=== PATIENT | female | born 1950 | race Caucasian/White ===

== ENCOUNTER 2019-02-22 11:52 | Emergency (ER) | payer OTHER ==
[~2019-02-22] VITALS: Ht 157.5 cm; Wt 76.2 kg
[2019-02-22 14:54] VITALS: BP 133/86
== END 2019-02-22 14:54 | disposition home or self-care (01) ==
LOC: ED 11:52
DX: S00.83XA Contusion of other part of head, initial encounter (principal); I10 Essential (primary) hypertension; Z88.8 Allergy status to other drugs, medicaments and biological substances; W01.0XXA Fall on same level from slipping, tripping and stumbling without subsequent striking against object, initial encounter; Y93.89 Activity, other specified; Y92.89 Other specified places as the place of occurrence of the external cause; Y99.8 Other external cause status

== ENCOUNTER 2019-04-23 08:44 | Inpatient (IN) | payer OTHER ==
[~2019-04-23] VITALS: Ht 157.5 cm; Wt 70.0 kg
[2019-04-23 08:50] VITALS: Ht 157.5 cm; Wt 70.0 kg
--- NOTE | 2019-04-23 09:38 | NUR ---
PT TO XRAY VIA W/C
--- NOTE | 2019-04-23 09:49 | NUR ---
PT MEDICATED PER MD ORDERS SEE EMAR.
[2019-04-23 09:53] LABS: BASOPHIL % 0.1 % (0-2); PLATELET COUNT 168 x10^3mcL (130-400)
[2019-04-23 09:55] LABS: RED CELL DISTRIBUTION WIDTH 15.1 % (11.5-14.5)
[2019-04-23 09:57] LABS: CALCIUM 9.2 mg/dL (8.5-10.1); CARBON DIOXIDE 24.5 mmol/L (21-32); POTASSIUM SERUM 3.7 mmol/L (3.5-5.1)
[2019-04-23 10:09] LABS: BILIRUBIN TOTAL 0.48 mg/dL (0.20-1.00); T4(THYROXINE) 7.7 ug/dL (4.7-13.3)
--- NOTE | 2019-04-23 10:13 | NUR ---
PT TO CT
--- NOTE | 2019-04-23 10:24 | NUR ---
PT BACK FROM CT WITH NO INCIDENT. PT OOB AMBULATORY TO BATHROOM WITH ASSISTANCE WILL PROVIDE CLEAN CATCH URINE INST.
[2019-04-23 10:32] LABS: ALBUMIN 3.2 g/dL (3.4-5.0); TOTAL PROTEIN, SERUM 8.6 g/dL (6.4-8.2)
[2019-04-23 11:12] LABS: AMPHETAMINE QUAL UR NONE DETECTED (See below)
--- NOTE | 2019-04-23 11:18 | NUR ---
CUP OF WATER GIVEN OK PER DR RODRIGUEZ
--- NOTE | 2019-04-23 12:00 | NUR ---
REPORT GIVEN TO CA HERNANDEZ.
[2019-04-23] MEDS ORDERED: HYDROCHLOROTHIA25 MG (12:23)
[2019-04-23] MEDS ORDERED: LISINOPRIL5 MG (12:23)
--- NOTE | 2019-04-23 12:23 | NUR ---
PT TRANSPORTED TO MED SURG FLOOR VIA [place] NO DISTRESS. VSS IV SITE PATENT. CA RN RESUMED CARE OF PT
--- NOTE | 2019-04-23 13:17 | NUR ---
AT 1220 - RECEIVED PATIENT FROM ER NURSE. SETTLED IN ROOM, ORIENTED TO SURROUNDINGS. ADMITTED WITH THROAT PAIN AND COUGH; DX OF PNEUMONIA. PATIENT IS AWAKE, ALERT AND ORIENTED X 4. VS WNL. AFEBRILE. RESPIRATIONS REGULAR ON 2L VIA NC. NOTED HALLITOSIS. PATIENT REPROTS NOT BEING ABLE TO TAKE ANYTHING PO FOR 3 DAYS. HISTORY OBTAINED FROM PATIENT. IV INFUSING LEVAQUIN. AT 1250 - COMMENCED IV INFUSION OF D5NS AT 50 ML/HR. GIVEN PEPCID IV PER EMAR. ALSO ADMINISTERED DOSE OF ROBITUSSEN FOR COUGH AND THROAT PAIN. PATIENT INSTRUCTED TO CALL WITH ANY NEEDS.
[2019-04-23 13:22] VITALS: BP 133/62
--- NOTE | 2019-04-23 14:29 | NUR ---
AT 1357 - MEDICATED WITH IV MORPHINE 1 MG PER EMAR FOR PERSISTANT THROAT PAIN. AT 1415 - COMMENCED ON IV ROCEPHIN. FIRST DOSE IN PROGRESS. PATIENT GIVEN PO ICE CHIPS.
--- NOTE | 2019-04-23 15:14 | NUR ---
PATIENT PLACE ON ROOM AIR BY RT AFTER RECEIVING BREATHING TREATMENT.
--- NOTE | 2019-04-23 15:52 | NUR ---
NASAL SWAB FOR MRSA COOLECTED AND TAKEN TO LAB.
[2019-04-23 17:27] VITALS: BP 135/75
--- NOTE | 2019-04-23 17:31 | NUR ---
COMMENCED ON ZITHROMAX. FIRST DOSE IN PROGRESS. PATIENT AMBULATED TO BATHROOM AND BACK TO BED WITH ASSISTANCE. REPORTS THAT MORPHINE WAS EFFECTIVE IN DULLING THE THROAT PAIN. PATIENT WILL TRY SOFT FOOD FOR DINNER - CANNED FRUIT AND JELLO.
--- NOTE | 2019-04-23 18:44 | NUR ---
VSS AND WNL. AFEBRILE. IV INFUSING D5NS AT 50 ML/HR. WILL ENDORSE CARE TO NIGHT NURSE.
--- NOTE | 2019-04-23 19:34 | NUR ---
PT C/O THROAT PAIN DURING INITIAL ROUNDS 04/23 PER ASSESSMENT NO DISTRESS, LUNGS DIM BILAT BASES OCC COUGHING ON RA MORPHINE 1MG IVP GIVEN PER PRN ORDER WILL CONT TO MONITOR, SHIFT ASSESSMENT DONE, IVF INFUSING D5NS @ 50CC/HR IV ACCESS @ RAC PATENT NON INFIL, AAO X4 VERBALIZED NEEDS, AMBULATES WITH ASSIST GEN WEAKNESS, EQUAL RECOVERY ROOM RN, RT CAME FOR HHN TX, CONT TO MONITOR.
[2019-04-23 20:19] VITALS: BP 128/68
--- NOTE | 2019-04-24 03:00 | NUR ---
PT AWAKE ASSISTED TO THE BATHROOM, SLOW BUT STEADY GAIT, REQUIRES ASSISTANCE FOR AMBULATION, DENIES PAIN AT THIS TIME, ABLE TO TOLERATE JUICES, ASPIRATION PREC OBSERVED, ATTENDED NEEDS CALL LIGHT AT REACH, CONT TO MONITOR.
[2019-04-24 05:51] VITALS: BP 120/71
[2019-04-24 06:25] LABS: CALCIUM 8.7 mg/dL (8.5-10.1); CARBON DIOXIDE 25.2 mmol/L (21-32); POTASSIUM SERUM 4.2 mmol/L (3.5-5.1)
[2019-04-24 06:47] LABS: BASOPHIL % 0.2 % (0-2); PLATELET COUNT 154 x10^3mcL (130-400)
[2019-04-24 06:49] LABS: RED CELL DISTRIBUTION WIDTH 15.1 % (11.5-14.5)
--- NOTE | 2019-04-24 07:00 | NUR ---
NO SIGNIFICANT CHANGES, SLEPT WELL DURING THE SHIFT, WILL ENDORSE TO INCOMING SHIFT FOR FOLLOW UP THE CARE.
--- NOTE | 2019-04-24 07:31 | NUR ---
AT 0710 - RECEIVED PATIENT FROM NIGHT NURSE. PATIENT AWAKE, ALERT AND ORIENTED. NO C/O PAIN AT THIS TIME. PATIENT REPROTS TAKING SMALL AMOUNT OF PO LIQUID AND JELLO. IV INFUSING D5 NS AT 50 ML/HR.
--- NOTE | 2019-04-24 07:58 | NUR ---
MEDICATED WITH 1MG MORPHINE IV PER EMAR FOR C/O THROAT PAIN. PATIENT TAKING SMALL AMOUNTS OF PO LIQUIDS ONLY. SEEN BY FRED MELÉNDEZ. SHE SPOKE WITH PATIENT ABOUT PLAN OF CARE AND NEED FOR PATIENT TO FOLLOW-UP WITH ENT SPECIALIST UPON DC FROM HOSPITAL.
[2019-04-24 08:49] VITALS: BP 116/68
--- NOTE | 2019-04-24 09:24 | NUR ---
AT 0845 - PATIENT REPORTS SOME RELIEF OF PAIN AFTER IV MORPHINE. HAS BEEN SEEN BY DR DOMÍNGUEZ WHO ACCORDING TO PATIENT RECOMMENDED WARM COMPRESSES TO NECK.
--- NOTE | 2019-04-24 13:04 | NUR ---
PATIENT EATING LUNCH. CURRENTLY ABLE TO TAKE SOME SOFT FOODS PO.
--- NOTE | 2019-04-24 15:54 | NUR ---
PATIENT REPROTS FEELING MUCH BETTER THIS AFTERNOON. NO C/O PAIN. SAYS THAT SHE WAS HAPPY THAT SHE WAS ABLE TO EAT SOME FOOD.
[2019-04-24 17:47] VITALS: BP 140/80
--- NOTE | 2019-04-24 18:31 | NUR ---
VSS. AFEBRILE. IV INFUSING D5NS AT 50 ML/HR. NO C/O PAIN. PATIENT TOLERATING MORE PO INTAKE TODAY. AMBULATES TO BATHROOM FOR TOILET NEEDS. WILL ENDORSE CARE TO NIGHT NURSE.
--- NOTE | 2019-04-24 20:20 | NUR ---
PT C/O THROAT PAIN DURING INITIAL ROUNDS 03/24 PER ASSESSMENT, PT CLAIMED TOLERATING DIET @ LUNCH AND DINNER BUT FELT COMFORTABLE AFTER EATING THE PASTA NO DISTRESS, BREATHING EASY AND SPONT, NO COUGHING, SATURATING 96% RA, LUNGS CTA, IVF D5NS INFUSING @ 50CC/HR IV ACCESS @ RAC PATENT NON INFIL, SHIFT ASSESSMENT DONE, REMAINED ON ATB IV ROCEPHIN AND ZITHROMAX, NO ADV REACTION, ON HHN TX BY RT, WILL CONT TO MONITOR.
[2019-04-24 20:27] VITALS: BP 145/76
--- NOTE | 2019-04-24 20:33 | NUR ---
MORPHINE 1MG IVP GIVEN FOR THROAT PAIN, HHN TX DONE BY RT, CONT TO MONITOR.
--- NOTE | 2019-04-25 01:10 | NUR ---
SEEN AND EXAMINED BY DR CUEVAS WITH CHANGES OF CURRENT ATB IV ORDER, WILL START DOSE PER PHARMACIST, PT ASLEEP AT THIS TIME NO S/SX OF PAIN OR DISCOMFORTS, CONT TO MONITOR.
--- NOTE | 2019-04-25 03:25 | NUR ---
MORPHINE 1MG IVP GIVEN FOR C/O THROAT PAIN 04/23 PER ASSESSMENT, REPOSITIONED SELF TO COMFORT NO DISTRESS, V/S IN RANGE, CHECKED AT INTERVALS.
[2019-04-25 05:51] VITALS: BP 148/82
--- NOTE | 2019-04-25 06:15 | NUR ---
INITIAL DOSE OF UNASYN HANGED INDICATED NO ADV REACTION, PT AMBULATES TO THE BATHROOM ABLE TO PERFORM AM GROOMING, STILL FELT UNCOMFORTABLE IN HER THROAT, WITH RELIEF ON SIPS OF APPLE JUICE, CONT TO MONITOR.
[2019-04-25 07:06] LABS: BASOPHIL % 0.1 % (0-2); PLATELET COUNT 174 x10^3mcL (130-400)
--- NOTE | 2019-04-25 07:15 | NUR ---
RECEIVED PATIENT FROM PRINCIPAL RESEARCH ECONOMIST NURSE. PATIENT IS AWAKE, ALERT AND ORIENTED. ERYTHEMA NOTED TO NECK. ON ROOM AIR, RESP E/U. ASPIRATION PREC IN PLACE. IV NOTED TO RAC, IVF INFUSING WELL ORDERED, NO S/S ERYTHEMA AT SITE. CALL LIGHT WITHIN EASY REACH. BED IN LOWEST POSITION. WILL CONTINUE PLAN OF CARE.
[2019-04-25 07:29] LABS: CALCIUM 8.8 mg/dL (8.5-10.1); CARBON DIOXIDE 23.6 mmol/L (21-32); CHLORIDE SERUM 104 mmol/L (98-107); CREATININE SERUM 0.9 mg/dL (0.6-1.0); GFR1 > 60 mL/min; GLUCOSE SERUM 99 mg/dL (74-106); RED CELL DISTRIBUTION WIDTH 14.7 % (11.5-14.5); SODIUM SERUM 140 mmol/L (136-145)
[2019-04-25 08:05] VITALS: BP 150/79
--- NOTE | 2019-04-25 13:19 | NUR ---
PATIENT RESTING EASY WITH NO C/O PAIN OR DISCOMFORT AT THIS TIME. STATES ALL NEEDS ATTENDED TO. WILL CONTINUE TO CLOSELY MONITOR.
--- NOTE | 2019-04-25 15:12 | NUR ---
Recommendations: 1. Add Ensure Enlive [place] TID w/ each meal.
--- NOTE | 2019-04-25 15:12 | NUR ---
Initial Nutrition Assessment: (252-B) LEONOR JARAMILLO 68F Dx: PNA PMHx:HTN PSHx: None Labs: BUN 21 H, Alb 3.2 L, RBC 3.85 L, Hgb 11.9 L, HCT 35 L Meds: Lovenox, Pepcid, Rocephin, Unasyn Diet: Cardiac PO intake since admission: ~25% Ht: 62in Wt: 155# BMI: 28.4 Bed scale: 164.2# IBW: 110# %IBW: 141% UBW: 160# Age: 68 Food Allergies: NKFA Skin: Cooper: 21 Edema: None noted GI: Last BM: 04/21 RD Note (04/25): Noted difficulty swallowing in chart. Visited pt bedside, still c/o throat soreness. Pt states has good appetite, but just cannot tolerate anything going down her throat. Pt stated eats only about 25% of tray r/t cannot tolerate, cannot swallow water, but okay w/ apple juice/sauce. Pt stated tried eating cooked spinach yesterday, still could not tolerate. Discussed ONS w/ pt, would like to receive strawberry flavor w/ each meal. Discussed ONS w/ [facility] PHYSICIAN Kaylie, confirmed. Problem with: N/V/D/C: No Problems with: Chewing: No Swallowing: Yes Current appetite: per pt, good if can eat Recent wt change: N/A %wt change: N/A Vitamin/Supplement use: No Special diet at home: Regular Physical activity: N/A Nutrition education given (specify specific nutrition education and handout given): None given at this time. Food-drug interactions? Education given? None given at this time. Estimated Nutritional Needs Based on current body weight (70.5 kg) Energy: 1210-4425 kcal/day (25-30 kcal/kg for geriatric maintenance) Protein: 71-85 g/day (1.0-1.2 g/kg) Fluid: 0415-3161 mL/day (1 mL/kcal) or per MD Nutrition Diagnosis: Altered GI function r/t sore throat AEB poor PO intake ~25%, need for soft foods Intervention: 1. Add Ensure Enlive [place] TID w/ each meal. Monitor/Evaluate: Goal: PO intake at least 75% of estimated needs Monitor: PO intake, Labs, GI function F/U in 3-5 days as moderate risk 04/28-04/30
[2019-04-25 16:10] VITALS: BP 155/76
--- NOTE | 2019-04-25 19:16 | NUR ---
PATIENT RESTING EASY IN NO ACUTE DISTRESS. CARE ENDORSED TO CRYSTAL FLAT GRINDER NURSESANDRA.
--- NOTE | 2019-04-25 20:26 | NUR ---
RECEIVED PT IN BED.ALERT AND ORIENTED. ABLE TO VERBALIZE NEEDS. DENIES HEADACHE/DIZZINESS. RESP. EVEN AND UNLABORED. ON ROOM AIR, LUNG SOUNDS DIM. AT THE BASES. DENIES SOB. NO ACUTE DISTRESS NOTED. IVF, D5NS AT 50ML/HR, INTACT AND INFUSING VIA RAC, SITE CLEAR. NO COMPLAINTS OF PAIN OR ANY DISCOMFORT TO THROAT AT THIS TIME. DENIES ANY DIFF. IN SWALLOWING. CALL LIGHT WITHIN REACH. WILL CONTINUE TO MONITOR.
[2019-04-25 20:35] VITALS: BP 150/80
--- NOTE | 2019-04-25 21:14 | NUR ---
COMPLAINED OF SORE THROAT, REQUESTING PAIN MED, 02/21, MEDICATED WITH MORPHINE SULFATE IV ORDERED. WILL CONTINUE TO MONITOR .
--- NOTE | 2019-04-26 00:40 | NUR ---
RESTING QUIETLY IN BED,WITH EYES CLOSED, APPEARS ASLEEP, EASILY AROUSABLE. RESP. EVEN AND UNLABORED. ON ROOM AIR, NO ACUTE DISTRESS NOTED. CALL LIGHT WITHIN REACH. WILL CONTINUE TO MONITOR.
[2019-04-26 05:36] VITALS: BP 133/79
--- NOTE | 2019-04-26 06:14 | NUR ---
SLEPT WELL. NO COMPLAINTS NOTED AT THIS TIME. DUE MEDS GIVEN ORDERED, [place]ULAY. WELL. IVF INTACT AND INFUSING WELL, SITE CLEAR. RESP. EVEN AND UNLABORED. ON ROOM AIR, NO ACUTE DISTRESS NOTED. AFEBRILE AND VITAL SIGNS STABLE. WILL CONTINUE TO MONITOR.
[2019-04-26 06:46] LABS: BASOPHIL % 0.2 % (0-2); PLATELET COUNT 181 x10^3mcL (130-400)
--- NOTE | 2019-04-26 07:10 | NUR ---
RECEIVED PATIENT FROM HARDWOOD FLOOR INSTALLATION HELPER NURSE. PATIENT IS AWAKE, ALERT AND ORIENTED. ERYTHEMA NOTED TO NECK. ON ROOM AIR, RESP E/U. ASPIRATION PREC IN PLACE. SUCTION SETUP WITH YANG AT BEDSIDE, PATIENT ABLE TO SUCTION PRN. IV NOTED TO RAC, IVF INFUSING WELL ORDERED, NO S/S ERYTHEMA AT SITE. CALL LIGHT WITHIN EASY REACH. BED IN LOWEST POSITION. WILL CONTINUE PLAN OF CARE.
[2019-04-26 07:25] VITALS: BP 130/71
[2019-04-26 07:29] LABS: CALCIUM 8.2 mg/dL (8.5-10.1); CARBON DIOXIDE 27.1 mmol/L (21-32); CHLORIDE SERUM 104 mmol/L (98-107); CREATININE SERUM 0.8 mg/dL (0.6-1.0); GFR1 > 60 mL/min; GLUCOSE SERUM 91 mg/dL (74-106); POTASSIUM SERUM 3.5 mmol/L (3.5-5.1); SODIUM SERUM 142 mmol/L (136-145)
[2019-04-26 07:59] LABS: RED CELL DISTRIBUTION WIDTH 14.8 % (11.5-14.5)
--- NOTE | 2019-04-26 13:10 | NUR ---
PATIENT MEDICATED WITH NORCO FOR SORE THROAT PAIN. TOLERATED WELL. WILL CONTINUE TO MONITOR.
[2019-04-26 16:40] VITALS: BP 135/70
--- NOTE | 2019-04-26 20:07 | NUR ---
PT CURRENTLY RESTING IN BED, NO ACUTE DISTRESS. A/O X4. NO TELE, MED/SURG. DENIES CHEST PAIN. PULSES PALPABLE IN ALL EXTREMITIES, NO EDEMA NOTED. PT STATES THROAT PAIN WHILE SWALLOWING, ERRYTHEMA NOTED TO NECK. LUNG SOUNDS DIMINISHED IN BILATERAL BASES, DENIES SOB. BOWEL SOUNDS ACTIVE, LAST BM 04/26/19. VOIDING WELL. AMBULATORY. IV PATENT AND INTACT. BED IN LOWEST POSITION, SIDE RAILS UP X2, CALL LIGHT WITHIN REACH. WILL CONTINUE TO MONITOR.
[2019-04-26 20:28] VITALS: BP 159/79
--- NOTE | 2019-04-27 00:26 | NUR ---
PT CURRENTLY RESTING IN BED, NO ACUTE DISTRESS. WILL CONTINUE TO MONITOR.
[2019-04-27 05:26] VITALS: BP 145/79
--- NOTE | 2019-04-27 06:08 | NUR ---
PT SLEPT PERIODICALLY THROUGHOUT NIGHT, NO ACUTE DISTRESS. ALL NEEDS MET AND ATTENDED TO. NO SIGNIFICANT CHANGES. IV PATENT AND INTACT. BED IN LOWEST POSITION, SIDE RAILS UP X2, CALL LIGHT WITHIN REACH. WILL ENDORSE CARE TO ONCOMING NURSE.
[2019-04-27 06:39] LABS: CALCIUM 8.5 mg/dL (8.5-10.1); CARBON DIOXIDE 28.1 mmol/L (21-32); CHLORIDE SERUM 105 mmol/L (98-107); CREATININE SERUM 0.7 mg/dL (0.6-1.0); GFR1 > 60 mL/min; GLUCOSE SERUM 109 mg/dL (74-106); POTASSIUM SERUM 3.6 mmol/L (3.5-5.1); SODIUM SERUM 142 mmol/L (136-145)
[2019-04-27 06:48] LABS: BASOPHIL % 0.1 % (0-2); PLATELET COUNT 185 x10^3mcL (130-400)
--- NOTE | 2019-04-27 07:18 | NUR ---
RECEIVED PATIENT FROM GM/SVP GLOBAL PUBLISHER BUSINESS NURSE. PATIENT IS AWAKE, ALERT AND ORIENTED. ERYTHEMA NOTED TO NECK. ON ROOM AIR, RESP E/U. ASPIRATION PREC IN PLACE. SUCTION SETUP WITH YANG AT BEDSIDE, PATIENT ABLE TO SUCTION PRN. IV NOTED TO RAC, IVF INFUSING WELL ORDERED, NO S/S ERYTHEMA AT SITE. CALL LIGHT WITHIN EASY REACH. BED IN LOWEST POSITION. WILL CONTINUE PLAN OF CARE.
[2019-04-27 07:40] LABS: RED CELL DISTRIBUTION WIDTH 14.6 % (11.5-14.5)
[2019-04-27 09:34] VITALS: BP 147/74
--- NOTE | 2019-04-27 13:00 | NUR ---
PATIENT AMBULATING HALLWAYS. TOELRATING WELL.
[2019-04-27 16:45] VITALS: BP 154/77
--- NOTE | 2019-04-27 19:18 | NUR ---
RECEIVED PT FROM PREVIOUS SHIFT. PT A/OX4. DENIES PAIN. DENIES SOB ON RA. IV PATENT AND INFUSING D5NS AT 50ML/HR WITH NO S/S OF INFILTRATION. CALL LIGHT WITHIN REACH, BED IN LOW POSTIION. WILL CONTINUE TO MONITOR.
[2019-04-27 19:26] VITALS: BP 147/82
--- NOTE | 2019-04-28 01:55 | NUR ---
PT RESTING IN NO ACUTE DISTRESS. RR EVEN AND UNLABORED. CALL LIGHT WITHIN REACH, BED IN LOW POSITION. WILL CONTINUE TO MONITOR.
[2019-04-28 06:13] VITALS: BP 147/86
[2019-04-28 07:42] LABS: BASOPHIL % 0.3 % (0-2); PLATELET COUNT 231 x10^3mcL (130-400)
[2019-04-28 07:43] LABS: RED CELL DISTRIBUTION WIDTH 14.7 % (11.5-14.5)
--- NOTE | 2019-04-28 08:04 | NUR ---
AT 0700 - RECEIVED PATIENT FROM NIGHT NURSE. SLEEPING, RESPIRATIONS REGULAR. IV INFUSING D5NS AT 50 ML/HR. AT 0745 - PATIENT AWAKE, ALERT AND ORIENTED. DENIES ANY PAIN AT THIS TIME. SITTING UP IN BED FOR BREAKFAST. TAKING ONLY SOFT FOODS AND LIQUIDS PO.
[2019-04-28 08:19] LABS: CALCIUM 8.6 mg/dL (8.5-10.1); CARBON DIOXIDE 26.2 mmol/L (21-32); CHLORIDE SERUM 105 mmol/L (98-107); CREATININE SERUM 0.7 mg/dL (0.6-1.0); GFR1 > 60 mL/min; GLUCOSE SERUM 115 mg/dL (74-106); POTASSIUM SERUM 3.3 mmol/L (3.5-5.1); SODIUM SERUM 142 mmol/L (136-145)
--- NOTE | 2019-04-28 08:45 | NUR ---
FRED MELÉNDEZ NOTIFIED OF K+ LEVEL OF 3.3
[2019-04-28 09:26] VITALS: BP 145/84
--- NOTE | 2019-04-28 09:31 | NUR ---
MEDICATED FOR PAIN WITH NORCO PER EMAR. MEDICINE CRUSHED AND GIVEN WITH APPLE JUICE.
--- NOTE | 2019-04-28 12:22 | NUR ---
COMMENCED 40 MEQ K-RIDER FOR K+ LEVEL OF 3.3. TO INFUSE OVER 4 HR.
[2019-04-28 17:06] VITALS: BP 146/86
--- NOTE | 2019-04-28 17:51 | NUR ---
AT 1430 - VANCOMYCIN NOW IN PROGRESS. PATIENT RESTING QUIETLY. AMBULATES TO BATHROOM FOR TOILET NEEDS. NO C/O PAIN AT THIS TIME. SPOKE WITH DR TREADWELL. HE WILL NOT BE SEEING PATIENT. NOTIFIED ASSEMBLER MOTOR VEHICLE RIKA. SHE WILL FOLLOW-UP WITH DR CUEVAS.
--- NOTE | 2019-04-28 19:01 | NUR ---
AWAKE, ALERT AND ORIENTED. PAIN UNDER CONTROL WITH NORCO 5/325. K-RIDER CONTINUING, CLOSE TO COMPLETION. PATIENT TOLERATING SOFT & LIQUID FOODS PO. AMBULATING TO BATHROOM FOR TOILET NEEDS. WILL ENDORSE CARE TO NIGHT NURSE.
--- NOTE | 2019-04-28 20:00 | NUR ---
SHIFT REASSESSMENT DONE.PATIENT ALERT AND ORIENTED.MAKE NEEDS KNOWN TO STAFF.GEN WEAKNESS,AMBULATORY.D5NS AT 50 CC/ HOUR L WRIST.MEDSURG PATIENT.CRUSH MED APPLE SAUCE PER AM REPORT.EDEMA AND REDNESS NECK ON ADMIT.SQ LOVENOX.THROAT PAIN DAY SHIFT,WAS GIVEN NORCO.CALL LIGHT IN REACH.
[2019-04-28 20:24] VITALS: BP 156/91
--- NOTE | 2019-04-28 21:00 | NUR ---
PATIENT VERY PLEASANT.COOPERATIVE OF CARE.
--- NOTE | 2019-04-28 23:29 | NUR ---
GIVEN NORCO,CRUSHED,MIX WITH APPLE SAUCE.THROAT HURTS.
--- NOTE | 2019-04-29 02:37 | NUR ---
PATIENT UP IN RESTROOM,VOIDING WELL,SAYS SHE HAD BM.
--- NOTE | 2019-04-29 05:52 | NUR ---
I AND O MEASURED.ATB,IVF INFUSING.NO INCIDENT THIS SHIFT.WILL ENDORSE TO NEXT SHIFT,
[2019-04-29 06:23] VITALS: BP 161/93
[2019-04-29 06:33] LABS: BASOPHIL % 0.4 % (0-2); PLATELET COUNT 306 x10^3mcL (130-400)
[2019-04-29 06:40] LABS: CALCIUM 9.1 mg/dL (8.5-10.1); CARBON DIOXIDE 30.2 mmol/L (21-32); CHLORIDE SERUM 103 mmol/L (98-107); CREATININE SERUM 0.8 mg/dL (0.6-1.0); GFR1 > 60 mL/min; GLUCOSE SERUM 90 mg/dL (74-106); POTASSIUM SERUM 3.9 mmol/L (3.5-5.1); SODIUM SERUM 142 mmol/L (136-145)
--- NOTE | 2019-04-29 07:30 | NUR ---
PATIENT IS RESTING IN BED, NO ACUTE DISTRESS NOTED. DENIES SOB, ON ROOM AIR. EDEMA NOTED TO LEFT SIDED NECK. PATIENT DENIES PAIN AT THIS TIME. DSNS INFUSING TO LEFT WRIST AT 50ML/HR, IV SITE CDI& PATENT, NO S/S OF INFILTRATION. CALL LIGHT WITHIN REACH, BED IN LOW POSITION, WILL CONTINUE TO MONITOR FOR CHANGES.
--- NOTE | 2019-04-29 08:33 | NUR ---
MEDICATIONS GIVEN A THIS TIME. PATIENT DENIES PAIN. PATIENT TOLERATED BREAKFAST THIS MORNING, NO ACUTE DISTRESS NOTED. WILL CONTINUE TO MONITOR.
[2019-04-29 09:42] VITALS: BP 151/78
[2019-04-29 09:44] VITALS: BP 161/93
--- NOTE | 2019-04-29 14:01 | NUR ---
PHARMACY AWARE PATIENT VANCO TROUGH WAS 16.1, PHARMACY STATED OKAY TO GIVE SCHEDULED VANCO AT 1400. WILL CARRY OUT ORDERS AND CONTINUE TO MONITOR.
--- NOTE | 2019-04-29 14:11 | NUR ---
PATIENT C/O OF PAIN 03/24, MEDICATED PATIENT WITH NORCO PER PROTOCOL (SEE EMAR), MEDICATION WAS GIVEN CRUSHED WITH APPLE SAUCE. PATIENT TOLERATED MEDICATION. CALL LIGHT WITHIN REACH, BED IN LOW POSITION, WILL CONTINUE TO MONITOR.
[2019-04-29 17:52] VITALS: BP 148/84
--- NOTE | 2019-04-29 18:06 | NUR ---
PATIENT RESTING IN BED, WATCHING TV. PATIENT DENIES PAIN AT THIS TIME. NO ACUTE DISTRESS NOTED, DENIES SOB, ON ROOM AIR. PATIENT STATES HER THROAT WAS FEELING A BIT BETTER. IVABX INFUSING TO LEFT WRIST AT THIS TIME, IV SITE CDI & PATENT, NO S/S OF INFILTRATION. CALL LIGHT WITHIN REACH, BED IN LOW POSITION, WILL CONTINUE TO MONITOR.
--- NOTE | 2019-04-29 19:35 | NUR ---
PT. AWAKE, ALERT, SITTING UP IN BED. ORIENTED X4. DENIES HEADACHE OR DIZZINESS. DENIES NEED FOR PAIN MEDICATION. HAS DIFFICULTY SWALLOWING AND HAS INCREASE OF PAIN WHILE SWALLOWING. LT. NECK SREA W/ SOME EDEMA AND REDNESS. BREATH SOUNDS DIMINISHED LT. SIDE/LLL. RESP. EVEN, UNLABORED. NO SOB NOTED. PT. ON RA. PEDAL PULSES STRONG TO BLE. NO EDEMA NOTED. ABD. SOFT AND ROUND. BOWEL SOUNDS ACTIVE. IVF INFUSING WELL, SITE INTACT. CALL LIGHT WITHIN REACH.
[2019-04-29 21:23] VITALS: BP 134/86
--- NOTE | 2019-04-30 02:27 | NUR ---
PT. BETWEEN SLEEP AND WAKE. DENIES NEED FOR PAIN MEDICATION THUS FAR. IVF INFUSING WELL, SITE INTACT. CALL LIGHT REMAINS WITHIN REACH.
--- NOTE | 2019-04-30 05:52 | NUR ---
LATE ENTRY: PT. STATED THAT HER STOOL WAS BLACK AND DISCOLORED. PT. WAS ABLE TO HAVE BM AND STOOL COLOR AND CONSISTENCY WAS NOTED. STOOL DARK BROWN AND SOFT BUT DOES NOT APPEARS TO BE DISCOLORED AT THIS TIME.
[2019-04-30 05:56] VITALS: BP 143/79
[2019-04-30 06:16] LABS: BASOPHIL % 0.2 % (0-2); PLATELET COUNT 340 x10^3mcL (130-400)
[2019-04-30 06:27] LABS: CALCIUM 9.6 mg/dL (8.5-10.1); CARBON DIOXIDE 30.4 mmol/L (21-32); POTASSIUM SERUM 4.2 mmol/L (3.5-5.1)
[2019-04-30 06:32] LABS: RED CELL DISTRIBUTION WIDTH 14.6 % (11.5-14.5)
--- NOTE | 2019-04-30 07:55 | NUR ---
AWAKE,ALERT AND ORIENTED. DENIES ANY PAIN AT THIS TIME.LEFT NECK SWELLING W/ REDNESS AND C/O DIFFICULTY SWALLOWING . MD MADE AWARE.AMBULATORY AND VOIDING WELL. CALL LIGHT W/ IN REACH. CONT. IV FLUIDS AND IV ANTIBIOTIC ORDERED.WILL CONT. PLAN OF CARE.
[2019-04-30 08:49] VITALS: BP 140/82
--- NOTE | 2019-04-30 09:00 | NUR ---
PT. C/O PAIN IN LEFT NECK,MEDICATED FOR PAIN ORDERED. MADE COMFORTABLE IN BED. CALL LIGHT W/ IN REACH.
--- NOTE | 2019-04-30 13:59 | NUR ---
Follow-up Nutrition Assessment: 252/ B LEONOR JARAMILLO FU Dx: PNA PMHx: HTN Labs: (04/30) HGB 11.9L Meds: D 5%, Lovenox, morphine, Pepcid, zosyn Diet: Cardiac PO Intake: (04/30) 100%, (04/29) breakfast 20%, (04/27) dinner 100%, lunch 80% Weights: (04/23) 70.4 kg, (04/28) 70 kg, (04/30) 75.7 kg Skin: intact Cooper: 21 I/Os: (04/29) 2750/200 (2550) Edema: none GI: Last BM: 04/27 RDN Visit (04/30): Patient was alert and oriented and said that she does not have any N/V but has diarrhea. Patient said that she is bale to tolerate the texture of food and is drinking Ensure Enlive. Per progress note (04/30), Surgical consult is pending for Nonspecific dilatation submandibular gland duct siladenitis. to evaluate if unable to perform may need to transfer ti higher level of care as patient is having some difficulty swallowing. Estimated Nutritional Needs based on actual body weight 70.5 kg Energy: 9982-6650 kcal/d (25-30 kcal/kg) Protein: 71-85 g/d (1.0-1.2 g/kg)- preserve LBM Fluid: 1340-0115 (1ml/kcal) or per MD Nutrition Diagnosis 1. Altered GI function related to sore throat as evidenced by documented PO of 25%, need for soft foods. (improving- documented PO- 100%, Pt drinking ensure) Intervention 1. Recommend continuing Cardiac diet w/ Ensure Enlive (strawberry) TID w/ meals Monitor/Evaluate Goal: Have pt meet at least 75% of estimated needs Monitor: PO intake, Labs, GI function F/U in 3-5 days as moderate risk 05/03-
--- NOTE | 2019-04-30 14:00 | NUR ---
1. Recommend continuing Cardiac diet w/ Ensure Enlive (strawberry) TID w/ meals.
--- NOTE | 2019-04-30 16:01 | NUR ---
PT. RESTING COMFORTABLE IN BED.DENIES ANY PAIN AT THIS TIME.CALL LIGHT W/ IN REACH.
[2019-04-30 17:25] VITALS: BP 150/73
[2019-04-30 19:42] VITALS: BP 155/82
--- NOTE | 2019-04-30 20:06 | NUR ---
PT CURRENTLY RESTING IN BED, NO ACUTE DISTRESS. A/O X4. NO TELE, MED/SURG. DENIES CHEST PAIN. PULSES PALPABLE IN ALL EXTREMITIES, NO EDEMA NOTED. LUNG SOUNDS DIMINISHED IN LEFT BASE, DENIES SOB. PT STATES DIFFICULTY SWALLOWING. BOWEL SOUNDS ACTIVE, LAST BM 04/30/19. VOIDING WELL. AMBULATORY. ERRYTHEMA AND WELLING NOTED TO LEFT NECK. PT STATES NECK PAIN ONLY WHILE SWALLOWING AND TO TOUCH. IV PATENT AND INTACT. BED IN LOWEST POSITION, SIDE RAILS UP X2, CALL LIGHT WITHIN REACH. WILL CONTINUE TO MONITOR.
--- NOTE | 2019-05-01 01:28 | NUR ---
PT CURRENTLY RESTING IN BED, NO ACUTE DISTRESS. WILL CONTINUE TO MONITOR.
[2019-05-01 05:29] VITALS: BP 162/85
[2019-05-01 07:13] LABS: BASOPHIL % 0.3 % (0-2); PLATELET COUNT 353 x10^3mcL (130-400)
[2019-05-01 07:16] LABS: RED CELL DISTRIBUTION WIDTH 15.1 % (11.5-14.5)
[2019-05-01 07:44] LABS: CALCIUM 9.7 mg/dL (8.5-10.1); CARBON DIOXIDE 27.3 mmol/L (21-32); POTASSIUM SERUM 3.8 mmol/L (3.5-5.1)
--- NOTE | 2019-05-01 08:03 | NUR ---
AWAKE,ALERT AND ORIENTED,LEFT NECK STILL EDEMA AND SLIGHTLY REDNESS,DENIES ANY PAIN AT THIS TIME.CONT. IV FLUIDS AND IV ANTIBIOTIC ORDERED. ABLE TO AMBULATE IN THE BATHROOM AND VOIDING WELL. CALL LIGHT W/ IN REACH. NO ACUTE RESP. DISTRESS NOTED. WILL CONT. PLAN OF CARE.
[2019-05-01 08:12] VITALS: BP 158/81
--- NOTE | 2019-05-01 13:00 | NUR ---
PT. AMBULATED AROUND IN [address] Z[place]. WELL DENIES ANY PAIN.
--- NOTE | 2019-05-01 15:13 | NUR ---
PT. RESTING COMFORTABLY IN BED. NO ACUTE RESP. DISTRESS NOTED. DENIES ANY PAIN AT THIS TIME.ATE LUNCH 100% CONT, IV FLUIDS AND IV ANTIBIOTIC ORDERED.
[2019-05-01 17:14] VITALS: BP 158/85
--- NOTE | 2019-05-01 19:56 | NUR ---
PT CURRENTLY RESTING IN BED, NO ACUTE DISTRESS. A/O X4. NO TELE, MED/SURG. DENIES CHEST PAIN. PULSES PALPABLE IN ALL EXTREMITIES, NO EDEMA NOTED. LUNG SOUNDS DIMINISHED IN LEFT BASE, DENIES SOB. BOWEL SOUNDS ACTIVE, LAST BM 04/30/19. VOIDING WELL. AMBULATORY. LEFT NECK ERRYTHEMA AND SWELLING NOTED. DIFFICULTY SWALLOWING. PT STATES NECK PAINFUL TO TOUCH ONLY. IV PATENT AND INTACT. BED IN LOWEST POSITION, SIDE RAILS UP X2, CALL LIGHT WITHIN REACH. WILL CONTINUE TO MONITOR.
[2019-05-01 20:26] VITALS: BP 167/77
--- NOTE | 2019-05-01 21:19 | NUR ---
IV IN LEFT WRIST FOUND LEAKING, DC'D IV, CATHETER INTACT. NEW IV STARTED IN LEFT FOREARM, PT TOLERATED WELL. CURRENTLY RESTING IN BED, NO ACUTE DISTRESS. WILL CONTINUE TO MONITOR.
[2019-05-01 22:30] VITALS: BP 127/62
--- NOTE | 2019-05-01 22:34 | NUR ---
BP 167/77, DR DONATO INFORMED, MEDICATED PER EMAR. CURRENT BP 127/62. PT CURRENTLY RESTING IN BED, NO ACUTE DISTRESS. WILL CONTINUE TO MONITOR.
--- NOTE | 2019-05-02 00:38 | NUR ---
DR CUEVAS HAS SEEN PATIENT, RECOMMENDING TRANSFER TO HIGHER LEVEL OF CARE FOR SURGICAL OR ENT CONSULT. PT CURRENTLY RESTING IN BED, NO ACUTE DISTRESS. WILL CONTINUE TO MONITOR.
[2019-05-02 05:47] VITALS: BP 148/84
--- NOTE | 2019-05-02 06:23 | NUR ---
PT SLEPT PERIODICALLY THROUGHOUT NIGHT, NO ACUTE DISTRESS. ALL NEEDS MET AND ATTENDED TO. NO SIGNIFICANT CHANGES. IV PATENT AND INTACT. MEDICATED PAIN PER EMAR. BED IN LOWEST POSITION, SIDE RAILS UP X2, CALL LIGHT WITHIN REACH. WILL ENDORSE CARE TO ONCOMING NURSE.
[2019-05-02 07:06] LABS: BASOPHIL % 0.4 % (0-2)
[2019-05-02 07:20] VITALS: BP 160/79
--- NOTE | 2019-05-02 07:23 | NUR ---
PATIENT A/OX4, ABLE HERBERT MAHNAZ NEEDS KNOWN AND FOLLOW COMMANDS, DENIES HEADACHE AT THIS TIME. DENIES CP. LUNGS DIMINISHED TO LEFT BASE, SWELLING AND MILD REDNESS NOTED TO LEFT NECK, PATIENT STATES PAIN TOLERABLE AND REFUSING PAIN MED AT THIS TIME. DENIES FEELING SOB ON RA, BUT HAS SOME DISCOMFORT SWALLOWING AT TIMES. BREATHING E/U. PERIPHERAL PUSLES PALPABLE, NO EDEMA. BOWEL SOUNDS ACTIVE, LAST BM YESTERDAY. IV ACCESS TO LFA SITE WNL, NO REDENSS/SWELLING. CALL LIGHT WITHIN REACH AND DEMONSTRATES UNDERSTANDING ON HOW TO USE. WILL CONT TO MONITOR.
[2019-05-02 07:30] LABS: PLATELET COUNT 423 x10^3mcL (130-400); RED CELL DISTRIBUTION WIDTH 15.1 % (11.5-14.5)
[2019-05-02 07:51] LABS: CALCIUM 9.6 mg/dL (8.5-10.1); CARBON DIOXIDE 24.7 mmol/L (21-32); CREATININE SERUM 1.1 mg/dL (0.6-1.0); POTASSIUM SERUM 3.8 mmol/L (3.5-5.1)
[2019-05-02 16:35] VITALS: BP 144/82
[2019-05-02 20:54] VITALS: BP 138/76
--- NOTE | 2019-05-02 21:32 | NUR ---
RECEIVED AWAKE IN BED WATCHING TV. SKIN WARM AND DRY TO TOUCH WITH LEFT SIDE OF THE NECK WITH TENDERNESS, NO OPEN WOUND NOTED. PATIENT CLAIMED PAIN TOLERABLE AT THIS TIME. RESPIRATION EVEN AND UNLABORED. NO S/S OF ACUTE DOSTRESS. CALL LIGHT WITHIN REACH. INSTRUCTED TO CALL FOR ANY ASSISTANCE NEEDE, CALL LIGHT WITHIN REACH.
--- NOTE | 2019-05-03 00:01 | NUR ---
EYES CLSOED, NO FACIAL GRIAMCING NOTED. RESPIRATION EVEN AND UNLABORED. BED IN LOWEST POSITION FOR SAFETY.
--- NOTE | 2019-05-03 02:00 | NUR ---
CONTINUES ON ATB IVPB FOR MANAGEMENT OF PNEUMONIA. NO ADVRSE REACTION NOTED.
--- NOTE | 2019-05-03 03:10 | NUR ---
AMBULATED TO BATHROOM FOR BLADDER FUNCTION. GOOD PERICARE RENDERED. KEPT CLEAN AND DRY.
--- NOTE | 2019-05-03 05:33 | NUR ---
CONTINUES ON ATB IVPB ORDERED. NO ADVERSE REACTION NOTED. IVF D5NS AT 50MLHR VIA PERIPHERAL LINE TOLERATING WELL. ALL NEEDS ATTENDED.
[2019-05-03 05:55] VITALS: BP 131/70
[2019-05-03 07:01] LABS: BASOPHIL % 0.6 % (0-2)
[2019-05-03 07:09] LABS: CALCIUM 9.3 mg/dL (8.5-10.1); CARBON DIOXIDE 25.2 mmol/L (21-32); POTASSIUM SERUM 3.9 mmol/L (3.5-5.1)
[2019-05-03 07:36] LABS: PLATELET COUNT 450 x10^3mcL (130-400); RED CELL DISTRIBUTION WIDTH 15.1 % (11.5-14.5)
--- NOTE | 2019-05-03 08:07 | NUR ---
AT 0725 - RECEIVED PATIENT FROM NIGHT NURSE. AWAKE, ALERT AND ORIENTED X 4. REPORTS FEELING BETTER. IV INFUSING D5NS AT 50 ML/HR. AT 0800 - EATING BREAKFAST. REPROTS MUCH EASIER SWALLOWING. LEFT NECK LUMP PALPABLE BUT EDEMA OF NECK AREA APPEARS REDUCED.
[2019-05-03 08:20] VITALS: BP 164/92
[2019-05-03] MEDS ORDERED: AUG500 PO (11:01)
[2019-05-03] MEDS ORDERED: LAC PO (11:02)
[2019-05-03] MEDS ORDERED: BACTRIM DS1 TAB PO (11:04)
--- NOTE | 2019-05-03 14:11 | NUR ---
AT 1100 - RECEIVED DISCHARGE ORDERS. IV INFUSION DISCONTINUED. PATIENT DENIES ANY PAIN. AT 1330 - HAS EATEN LUNCH. PREPARING FOR DISCHARGE. IV CATHETER REMOVED INTACT. AT 1350 - PRINTED DISCHARGE INSTRUCTIONS GIVEN AND EXPLAINED TO PATIENT. PRESCRIPTION PROVIDED. AT 1400 - DISCHARGED HOME ALONE. [facility]. PATIENT IS TAKING LIFT TRANSPORT HOME.
== END 2019-05-03 14:02 | disposition home or self-care (01) | DRG 154 ==
LOC: ED 08:44 → MU 11:49
PROVIDERS: Emergency Medicine; Internal Medicine; ADMIT Internal Medicine
DX: K11.20 Sialoadenitis, unspecified (principal); J18.9 Pneumonia, unspecified organism; I10 Essential (primary) hypertension; Z68.30 Body mass index [BMI] 30.0-30.9, adult; Z87.891 Personal history of nicotine dependence
CPT/HCPCS: 86308; G0378; J0295; J0456; J0696; J1100; J1650; J1956; J2270; J2543; J3370; J3480; J3490; J7042; J7050; J7620; J7626; Q0092; Q9967

== ENCOUNTER 2019-05-04 12:27 | Emergency (ER) | payer OTHER ==
[~2019-05-04] VITALS: Ht 152.4 cm; Wt 55.3 kg
[~2019-05-04 12:27] MED LIST: AUG500 PO; BACTRIM DS1 TAB PO; HYDROCHLOROTHIA25 MG; LAC PO; LISINOPRIL5 MG
[2019-05-04 12:54] VITALS: Ht 152.4 cm; Wt 55.3 kg
[2019-05-04 14:09] VITALS: BP 147/89
== END 2019-05-04 14:09 | disposition home or self-care (01) ==
LOC: ED 12:27
DX: T78.3XXA Angioneurotic edema, initial encounter (principal); I10 Essential (primary) hypertension; Z91.09 Other allergy status, other than to drugs and biological substances